=== PATIENT | female | born 1940 ===

== ENCOUNTER 2016-07-27 13:44 | Inpatient (IN) | payer MEDICARE, OTHER ==
[~2016-07-27] VITALS: Ht 162.6 cm; Wt 80.0 kg
[2016-07-27] VITALS (17 sets, daily range): BP systolic 107–164; BP diastolic 43–72; BMI 26.3
--- NOTE | ~2016-07-27 | HEMODYNAMI ---
PATIENT:JERSON DRAPER MEDICAL RECORD: [id number] : 42 LOCATION:[facility] ADMISSION DATE: 07/27/16 Generatedon:07/27/201616:13 Patient name: JERSON DRAPER Patient #: [id number] SSN: D OB: 1940 Date of study: 07/27/2016 Page: Of Hemodynamic Procedure Report Patient Data Patient Demographics Procedure consent was obtained First Name: JERSON Gender: Female Last Name: BARON : 1940 Middle Initial: L Age: 75 year(s) Patient #: [id number] Race: Unknown Additional ID: [id number] Contact details Address: [facility] [address] State: [place] City: [place] Zip code: [address] Admission Admission Data Admission Date: 07/27/2016 Admission Time: 13:44 Procedure Procedure Types Cath Procedure Diagnostic Procedure LHC LHC w/Coronaries Intra-Aortic Balloon Pump PCI Procedure AMI-BMS/XIMENA Initial Miscellaneous Procedures Moderate Sedation up to 45 minutes Procedure Description Procedure Date Procedure Date: 07/27/2016 Procedure Start Time: 14:40 Procedure Staff Name Function Isauro Steinberg MD Performing Physician Den Claudio RT Scrub Brian Mills RN Nurse Tootie Fry RT Monitor Procedure Data Cath Procedure Fluoroscopy Diagnostic fluoroscopy Total fluoroscopy Time: time: 10.5 min 10.5 min Diagnostic fluoroscopy Total fluoroscopy dose: dose: 1071 mGy 1071 mGy Contrast Material Contrast Material Type Amount (ml) Isovue 300 110 Entry Location Entry Primary Successful Side Size Upsize Upsize Entry Closure Succes sful Closure Location (Fr) 1 (Fr) 2 (Fr) Remarks Device Remarks Femoral Right 6 Fr Exoseal artery Short Femoral Left 7 Fr Sheath artery Short sutured in place Estimated blood loss: 10 ml Diagnostic catheters Device Type Used For End Catheter Placement Cordis 5Fr JL 4.0 Left Coronary Catheter (MP) Angiography Cordis 5Fr 3DRC Catheter Right Coronary (MP) Angiography Procedure Complications No complications Procedure Medications Medication Administration Route Dosage Oxygen NC 2 l/min Heparin Flush Bag added to field 2 bags (1000units/500ml NS) 0.9% NaCl I.V. 100 ml/hr Fentanyl I.V. 50 mcg Versed I.V. 1 mg Fentanyl I.V. 50 mcg Versed I.V. 1 mg Heparin Bolus I.V. 6500 units Integrilin (Bolus I.V. 6.2 ml 2mg/ml) Nitroglycerin IC/IA I.C. 100 mcg Cardene I.C. 300 mcg Dopamine I.V. drip 10 mcg/kg/min (400mg/250ml D5W) Integrilin Drip I.V. drip 10.4 ml/hr (75mg/100ml) Dopamine I.V. drip 10 mcg/kg/min (400mg/250ml D5W) 0.9% NaCl I.V. 999 ml/hr Brilinta P.O. 180 mg Hemodynamics Rest Heart Rate: 81 (bpm) Snapshots Pre Cath Intra NCS Post Cath Vital Signs Time Heart Resp SPO2 etCO2 OS5auug NIBP Rhythm Pain Sedation Rate (ipm) (%) (mmHg) (mmHg) (mmHg) Status Level (bpm) 14:34:41 93 20 91 0 0 101/65(77) NSR 0 (11) 10(A) , No pain 14:38:43 91 19 95 0 0 114/72(98) NSR 0 (11) 9(A) , No pain 14:42:49 93 17 91 0 0 110/72(86) NSR 0 (11) 9(A) , No pain 14:46:55 96 17 96 0 0 107/66(80) NSR 0 (11) 9(A) , No pain 14:51:01 98 16 96 0 0 94/61(67) NSR 0 (11) 9(A) , No pain 14:55:02 99 17 97 0 0 107/63(82) NSR 0 (11) 9(A) , No pain 14:59:08 100 17 97 0 0 115/58(87) NSR 0 (11) 9(A) , No pain 15:03:18 97 17 95 0 0 106/62(77) NSR 0 (11) 9(A) , No pain 15:08:33 74 18 96 0 0 56/32(45) NSR 0 (11) 9(A) , No pain 15:17:18 69 12 97 0 0 57/33(41) NSR 0 (11) 9(A) , No pain 15:21:11 91 17 96 0 0 66/35(46) NSR 0 (11) 9(A) , No pain 15:25:09 80 20 95 0 0 63/36(49) NSR 0 (11) 9(A) , No pain 15:30:06 72 17 94 0 0 54/34(46) NSR 0 (11) 9(A) , No pain 15:38:36 111 18 95 0 0 91/66(83) NSR 0 (11) 10(A) , No pain 15:42:42 96 17 95 0 0 98/42(65) NSR 0 (11) 10(A) , No pain 15:57:14 91 19 95 0 0 114/46(69) NSR 0 (11) 10(A) , No pain 16:01:20 90 28 94 0 0 119/67(81) NSR 0 (11) 10(A) , No pain 16:05:26 89 23 94 0 0 117/71(76) NSR 0 (11) 10(A) , No pain 16:10:25 88 20 95 0 0 Measuring NSR 0 (11) 10(A) , No pain 16:11:02 88 18 95 0 0 126/69(94) NSR 0 (11) 10(A) , No pain Medications Time Medication Route Dose Verified Delivered Reason N otes Effectiveness by by 14:37:17 Oxygen NC 2 l/min Brian Torres Per physician Gene Mills RN RN 14:37:26 Heparin Flush added 2 bags Brian Torres used for Bag to Gene Mills RN procedure (1000units/500ml field RN NS) 14:37:37 0.9% NaCl I.V. 100 ml/hr Brian Torres Per physician Gene Mills RN RN 14:37:47 Fentanyl I.V. 50 mcg Brian Torres for sedation Gene Mills RN RN 14:37:53 Versed I.V. 1 mg Brian Torres for sedation Gene Mills RN RN 14:41:58 Fentanyl I.V. 50 mcg Brian Brian for sedation Gene Mills RN RN 14:42:02 Versed I.V. 1 mg Brian Torres for sedation Gene Mills RN RN 14:47:28 Integrilin I.V. 6.2 ml Brian Torres for w asted 3.8mL (Bolus 2mg/ml) Gene Mills RN antiplatelet of RN therapy integrilin bolus 14:47:28 Heparin Bolus I.V. 6500 units Brian Torres for Gene Mills RN anticoagulation RN 14:59:15 Nitroglycerin I.C. 100 mcg Brian Isauro for IC/IA Gene Steinberg MD vasodilation RN 14:59:34 Cardene I.C. 300 mcg Brian Isauro for Gene Steinberg MD vasodilation RN 15:02:07 0.9% NaCl I.V. 999 ml/hr Brian Torres Per physician Gene Mills RN RN 15:03:20 Dopamine I.V. 10 Brian Torres For hypotension (400mg/250ml drip mcg/kg/min Gene Mills RN D5W) RN 15:10:30 Integrilin Drip I.V. 10.4 ml/hr Brian Torres for (75mg/100ml) drip Gene Mills RN antiplatelet RN therapy 15:35:23 Dopamine I.V. 10 Brian Torres For hypotension d iscontinued (400mg/250ml drip mcg/kg/min Gene Mills RN D5W) RN 15:54:54 Brilinta P.O. 180 mg Brian Torres for Gene Mills RN antiplatelet RN therapy Procedure Log Time Note 14:20:11 Brian Mills RN sent for patient. Start room use. 14:30:12 Time tracking: Call back 14:30:15 Plan of Care:Hemodynamics will remain stable., Cardiac rhythm will remain stable., Comfort level will be maintained., Respiratory function will remain adequate., Patient/ family verbilizes understanding of procedure., Procedure tolerated without complication., Recovers from procedure without complications.. 14:33:33 Patient received from ED to CCL 1 Alert and oriented. Tansferred to table in Supine position. 14:33:34 Warm blankets applied, and ty hugger turned on for patient comfort. 14:33:34 Correct patient and procedure confirmed by team. 14:33:35 Signed procedure consent form obtained from patient. 14:33:36 ECG and BP/O2 sat monitors applied to patient. 14:33:36 Vital chart was started 14:33:44 Rhythm: sinus rhythm , w/ ST elevation 14:33:46 Full Disclosure recording started 14:33:50 H&P Date Dictated: 07/27/2016 Emergent; H&P N/A. 14:33:52 Pre-procedure instructions explained to patient. 14:33:52 Pre-op teaching completed and patient verbalized understanding. 14:33:54 Family in waiting room. 14:33:56 Patient NPO since Midnight. 14:34:08 Is the patient allergic to Iodine/contrast media? No. 14:34:10 Is patient on blood thinner?No 14:34:22 IV Extension Set opened to sterile field. 14:34:31 Patient diabetic? No. 14:34:34 Previous problem with sedation/anesthesia? No ? 14:34:36 Snore? Yes 14:34:37 Sleep apnea? No 14:34:38 Deviated septum? No 14:34:39 Opens mouth fully? Yes 14:34:40 Sticks out tongue? Yes 14:34:41 Airway obstruction? No ? 14:34:44 Dentures? No ? 14:34:47 Pre procedure: right dorsailis pedis pulse 2+ Normal; easily identifiable; not easily obliterated 14:34:49 Patient pain scale 0/10 ?. 14:34:58 IV patent on arrival in left forearm with 0.9% NaCl at KVO. 14:35:02 Lab results completed and on chart. 14:35:04 Right groin area was prepped with chlora-prep and draped in sterile fashion 14:35:05 Alarms reviewed by R. N. 14:35:06 Sharps counted by scrub and verified by R.N. 14:35:07 Final Timeout: patient, procedure, and site verified with staff and physician. All members of the team are in agreement. 14:35:08 Right groin site verified by team. 14:35:12 Physical assessment completed. ASA score P 3 - A patient with severe systemic disease as per Isauro Steinberg MD. 14:35:15 Sedation plan: IV Moderate Sedation Versed, Fentanyl 14:35:22 Use device set Femoral Dx 14:35:23 Acist Syringe opened to sterile field. 14:35:23 Bag Decanter opened to sterile field. 14:35:24 Medline Cath Pack opened to sterile field. 14:35:25 St Michael 260cm J .035 wire opened to sterile field. 14:35:26 Acist Hand Control opened to sterile field. 14:35:26 Acist Manifold opened to sterile field. 14:35:27 Diagnostic Infinity 5Fr Multipack catheter opened to sterile field. 14:35:27 Tegaderm 4 x 4 opened to sterile field. 14:35:43 Terumo 6Fr Arnegard Sheath opened to sterile field. 14:37:17 Oxygen 2 l/min NC was administered by Brian Mills RN; Per physician; 14:37:26 Heparin Flush Bag (1000units/500ml NS) 2 bags added to field was administered by Brian Mills RN; used for procedure; 14:37:37 0.9% NaCl 100 ml/hr I.V. was administered by Brian Mills RN; Per physician; 14:37:47 Fentanyl 50 mcg I.V. was administered by Brian Mills RN; for sedation; 14:37:53 Versed 1 mg I.V. was administered by Brian Mills RN; for sedation; 14:39:36 Zero performed for pressure channel P1 14:40:55 Local anesthetic to right femoral artery with Lidocaine 2% by Isauro Steinberg MD.INITIAL ACCESS ONLY 14:41:18 Zero performed for pressure channel P1 14:41:58 Fentanyl 50 mcg I.V. was administered by Brian Mills RN; for sedation; 14:42:02 Versed 1 mg I.V. was administered by Brian Mills RN; for sedation; 14:42:18 A 6 Fr Short sheath was inserted into the Right Femoral artery 14:42:54 Baseline sample Acquired. 14:43:04 A Cordis 5Fr JL 4.0 Catheter (MP) was advanced over the wire and used for Left Coronary Angiography. 14:43:43 Cordis 6FR XBLAD 3.5 guide catheter opened to sterile field. 14:43:49 Catheter removed. 14:44:16 A Cordis 5Fr 3DRC Catheter (MP) was advanced over the wire and used for Right Coronary Angiography. 14:45:14 Catheter removed. 14:46:56 6 Fr XBLAD 3.5 guide catheter was inserted over the wire 14:47:28 Integrilin (Bolus 2mg/ml) 6.2 ml I.V. was administered by Brian Mills RN; for antiplatelet therapy; wasted 3.8mL of integrilin bolus 14:47:28 Heparin Bolus 6500 units I.V. was administered by Brian Mills RN; for anticoagulation; 14:49:20 BMW wire advanced. 14:49:27 Wire removed. unable to cross lesion. 14:50:04 Whisper wire advanced. 14:52:56 Inflation number: 1 A Blandford Sci Pickaway 2.5 X 20 balloon was prepped and advanced across the Prox CX, then inflated to 10 MIMI for 0:23 (min:sec). 14:53:59 Inflation number: 2 The Blandford Sci Pickaway 2.5 X 20 balloon was reinflated across the Prox CX, to 10 MIMI for 0:17 (min:sec). 14:54:22 Inflation number: 3 The Blandford Sci Pickaway 2.5 X 20 balloon was reinflated across the Prox CX, to 10 MIMI for 0:14 (min:sec). 14:55:40 Balloon removed over the wire. 14:58:27 Inflation Number: 4 A CourseAdvisortronic Integrity 2.75 X 26 stent was prepped and advanced across the Prox CX. The stent was deployed at 10 MIMI for 0:14 (min:sec). 14:59:15 Nitroglycerin IC/IA 100 mcg I.C. was administered by Isauro Steinberg MD; for vasodilation; 14:59:34 Cardene 300 mcg I.C. was administered by Isauro Steinberg MD; for vasodilation; 15:02:07 0.9% NaCl 999 ml/hr I.V. was administered by Brian Mills RN; Per physician; 15:03:20 Dopamine (400mg/250ml D5W) 10 mcg/kg/min I.V. drip was administered by Brian Mills RN; For hypotension; 15:10:30 Integrilin Drip (75mg/100ml) 10.4 ml/hr I.V. drip was administered by Brian Mills RN; for antiplatelet therapy; 15:20:49 Stent catheter was removed intact over wire. 15:20:50 Wire removed. 15:21:09 Left groin area was prepped with chlora-prep and draped in sterile fashion 15:22:51 A 7 Fr Short sheath was inserted into the Left Femoral artery 15::39 Local anesthetic to left femerol artery with Lidocaine 2% by Isauro Steinberg MD.ADDITIONAL ACCESS 15:27:11 34cc IABP inserted into the LFA . 15:27:13 Augmentation: 1:1 per physician. 15:: Trigger: Pressure 15:: Augmenter BP: 60 15:35:23 Dopamine (400mg/250ml D5W) 10 mcg/kg/min I.V. drip was administered by Brian Mills RN; For hypotension; discontinued 15:36:23 Vital chart was stopped 15:36:24 Vital chart was started 15:43:23 Cordis 6Fr Exoseal opened to sterile field. 15:43:56 Sheath removed intact; hemostasis achieved with Exoseal to the Right Femoral artery. 15:44:22 TUBING, CONTRAST INJCTN HI PRES opened to sterile field. 15:44:22 Datascope IABP 34cm balloon catheter opened to sterile field. 15:44:37 2.0 Silk 685H opened to sterile field. 15:44:38 2.0 Silk 685H opened to sterile field. 15:44:44 Procedure ended.(Physican Out) 15:45:09 Arterial Line opened to sterile field. 15:45:31 Terumo 7Fr Arnegard Sheath opened to sterile field. 15:54:54 Brilinta 180 mg P.O. was administered by Brian Mills RN; for antiplatelet therapy; 15:56:08 Vital chart was stopped 15:56:09 Vital chart was started 16:07:10 Fluoroscopy time 10.50 minutes. 16:07:14 Fluoroscopy dose: 1071 mGy 16:07:14 Flurop Dose total: 1071 16:07:19 Contrast amount:Isovue 300 110ml. 16:07:20 Sharps counted by scrub and verified by R.N. 16:07:22 Insertion/operative site no bleeding no hematoma. 16:07:27 Post-op/insertion site Right Femoral artery dressed using a 4 x 4 and Tegaderm. 16:07:31 Post right femoral artery:stable, clean and dry 16:07:49 Sheath removed intact; hemostasis achieved with Sheath sutured in place to the Left Femoral artery. 16:07:57 Post-op/insertion site Left Femoral artery dressed using a 4 x 4 and Tegaderm. 16:07:59 Post Procedure Pulses reassessed and unchanged 16:08:04 Post-procedure physical assessment completed. ASA score P 3 - A patient with severe systemic disease as per Isauro Steinberg MD. 16:08:51 Post procedure rhythm: sinus rhythm 16:08:53 Estimated blood loss: 10 ml 16:08:55 Post procedure instruction explained to patient.Patient verbalizes understanding. 16:08:55 Patient needs reinforcement of post procedure teaching. 16:09:32 Procedure type changed to Cath procedure, Diagnostic procedure, LHC, LHC w/Coronaries, Intra-Aortic Balloon Pump, PCI procedure, AMI-BMS/XIMENA Initial, Miscellaneous Procedures, Moderate Sedation up to 45 minutes 16:09:43 Procedure Complication : No complications 16:09:45 See physician's report for complete and final results. 16:10:15 Tegaderm 4 x 4 opened to sterile field. 16:10:15 Tegaderm 4 x 4 opened to sterile field. 16:10:16 IV Extension Set opened to sterile field. 16:11:11 Merit BasixCompak Inflation Kit opened to sterile field. 16:11:12 Aguilar BMW Chana 2 J-tip 300cm 0.014 guide wir opened to sterile field. 16:11:17 High Pressure Extension Tubing (Steinberg) opened to sterile field. 16:13:23 Report given to CVICU. 16:13:26 Patient transfered to CVICU with Bed. 16:13:28 Procedure and supply charges have been captured, reviewed, submitted and are correct. 16:13:31 End room use (Document Last) 16:13:53 Vital chart was stopped Intervention Summary Intervention Notes Time ActionType Lesion and Equipment Action# Pressure Duration Attributes Used 14:52:56 Inflate Prox CX Blandford 1 10 00:23 balloon Sci Pickaway 2.5 X 20 balloon 14:53:59 Reinflate Prox CX Blandford 2 10 00:17 balloon Sci Pickaway 2.5 X 20 balloon 14:54:22 Reinflate Prox CX Blandford 3 10 00:14 balloon Sci Pickaway 2.5 X 20 balloon 14:58:27 [address] stent Prox CX Medtronic 4 10 00:14 Integrity 2.75 X 26 stent Device Usage Item Name Manufacture Quantity Catalog Number Hospital Part Current Min imal Lot# / Charge Number Stock Stock Serial# Code IV Hospfort myers 2 39460-17 425617 77531 327700 5 Extension Set Acist Acist 1 51392 850203 917456 151002 20 Syringe Medical Systems Inc Bag Microtek 1 2002S 763555 75464 617210 5 Decanter Medical Inc. Medline Cardinal 1 [id number] 323046 85231 032311 [address] [facility] 1 293849 858980 855734 262509 30 260cm J .035 wire Acist Hand Acist 1 42992 258848 293933 232078 5 Control Medical Systems Inc Acist Acist 1 09283 630954 566582 548742 5 Manifold Medical Systems Inc Diagnostic Cardinal 1 [id number] 006461 46503 537420 30 BitGymity Health 5Fr Multipack catheter Tegaderm 4 3M 3 1626W 028475 388673 412348 5 x 4 Terumo 6Fr Terumo 1 [id number] 377781 852739 596440 40 Arnegard Sheath Cordis 5Fr Cardinal 1 532193 5 JL 4.0 Health Catheter (MP) Cordis 6FR Cardinal 1 [id number] 398522 833315 538244 10 XBLAD 3.5 Health guide catheter Cordis 5Fr Cardinal 1 439588 5 3DRC Health Catheter (MP) Blandford Sci Blandford 1 [id number] 194569 811266 576416 1 [id number] Field Agent Scientific 2.5 X 20 balloon Medtronic Medtronic 1 [id number] 678396 628409 591410 4 [id number] Integrity 2.75 X 26 stent Cordis 6Fr Cardinal 1 EX600 006073 592732 503972 10 HabitRPG TUBING, Merit 1 [id number] 165002 026368 804021 5 CONTRAST Medical INJCTN HI PRES Datascope Datascope 1 8056-67-3030-01 983051 022737 027962 1 IABP 34cm balloon catheter 2.0 Silk Ethicon 2 685H 179784 60034 072754 5 685H Arterial Smith 1 PX260 442880 83218 642350 5 Line Lifesciences Terumo 7Fr Terumo 1 YSE891 415588 425623 806939 5 Arnegard Sheath Merit Merit 1 FJ3457 619986 756074 063331 15 BasixCompak Medical Inflation Kit Aguilar BMW Aguilar 1 [id number] 265659 062120 104727 5 Chana 2 Vascular J-tip 300cm 0.014 guide wir High Merit 1 [id number] 614948 45027 663727 10 Pressure Medical Extension Tubing (Steinberg) Signature Audit [place] Stage Time Signature Unsigned Intra-Procedure 07/27/2016 T[place]ie 4:13:51 PM Counts RT(R) Signatures Monitor : Tootie Signature : Counts RT Date : Time : [address] [place] [address]
[2016-07-27 14:20] LABS: BASOPHILS 0.2 % (0-2); EOSINOPHILS 0.1 % (0-7); HEMATOCRIT 37.7 % (36.0-48.0); HEMOGLOBIN 11.7 g/dL (12-16); IMMATURE GRANULOCYTES 0.6 % (0-5); LYMPHOCYTES 9.7 % (15-50); MCV 86.9 fL (80.0-100.0); MEAN PLATELET VOLUME 9.8 fL (7.4-10.4); MONOCYTES 5.1 % (2-11); NEUTROPHILS 84.3 % (40-80); PLATELET COUNT 209 10x3/uL (130-400); RBC 4.34 10x6/uL (4.00-5.40); RDW 14.3 % (11.5-14.5); WBC 19.7 10x3/uL (4.8-10.8)
[2016-07-27 14:34] LABS: ALKALINE PHOSPHATASE 89 U/L (46-116); ALT (SGPT) 71 U/L (10-68); BILIRUBIN - TOTAL 0.93 mg/dL (0.2-1.3); CALC OSMOLALITY 285 mosm/kg (275-300); CALCIUM 8.5 mg/dL (8.5-10.1); CARBON DIOXIDE 25.8 mmol/L (21.0-32.0); CHLORIDE - SERUM 101 mmol/L (98-107); CREATININE - SERUM 1.6 mg/dL (0.6-1.3); POTASSIUM - SERUM 5.1 mmol/L (3.5-5.1); SODIUM 135 mmol/L (136-145); UREA NITROGEN 17 mg/dL (7-18); eGFR NON AFRICAN AMERICAN 33 mL/min (90-120)
[2016-07-27 14:35] LABS: GLUCOSE 352 mg/dL (74-106)
[2016-07-27 15:04] LABS: CHOLESTEROL, TOTAL 158 mg/dL (0-200); HDL CHOLESTEROL 40 mg/dL (32-96); LDL CHOLESTEROL 92 mg/dL (0-100); LDL-HDL RATIO 2.3 ratio (1.5-3.5); TRIGLYCERIDE 133 mg/dL (30-200)
[2016-07-27 15:05] LABS: CKMB 593.4 U/L (0.0-3.6); CREATINE KINASE 3923 UL (21-215)
[2016-07-27 15:13] LABS: TROPONIN-I 53.054 ng/mL (0.000-0.060)
--- NOTE | 2016-07-27 16:22 | NUR ---
RECIEVED PT FROM DRY CHAIN OPERATOR. ATTACHED TO ICU MONITORS. VSS AT THIS TIME. BALLOON PUMP TO LEFT GROIN. AT 1:1 FREQUENCY. REFER TO IABP FLOWSHEET FOR DOCUMENTATION. CATH SITE TO RIGHT GROIN WITH OPSITE DRESSING THAT'S C/D/I. DOPPLERABLE PEDAL PULSES. RADIAL PULSES PALPABLE BILATERALLY AND EQUAL. RECIEVING 3L VIA NC. IV TO LEFT HAND INFUSING INTEGRALIN AT 2MCG/MIN. IV TO LEFT FA INFUSING NS AT 100CC/HR. PT RESTLESS, INSTRUCTED ON THE IMPORTANCE OF KEEPING LEGS STRAIGHT. VERBALIZED UNDERSTANDING. REPORTS PAIN TO LEFT GROIN. WILL CALL DR. MICHAELS FOR PAIN MEDICATION ORDER. 1:1 CARE PROVIDED.
--- NOTE | 2016-07-27 17:00 | NUR ---
FAMILY AT BEDSIDE. UPDATE PROVIDED.
--- NOTE | 2016-07-27 17:00 | NUR ---
16F HARMON PLACED WITH 200CC CLEAR, YELLOW URINE NOTED TO COLLECTION BAG. DATED AND TIMED.
[2016-07-27] MEDS ORDERED: TRAZODONE HCL50 MG PO (17:15)
[2016-07-27] MEDS ORDERED: BENAZEPRIL HCL10 MG PO (17:20)
[2016-07-27] MEDS ORDERED: ULTRAM50 MG (17:21)
[2016-07-27] MEDS ORDERED: NEURONTIN 300300 MG PO (17:24)
[2016-07-27] MEDS ORDERED: OMEPRAZOLE20 M1 PO (17:24)
[2016-07-27] MEDS ORDERED: CYMBALTA20 MG PO (17:25)
[2016-07-27] MEDS ORDERED: SYNTHROID50 MCG PO (17:26)
--- NOTE | 2016-07-27 18:10 | NUR ---
DR. MICHAELS PAGED IN REGARDS TO PT'S BP AND AUGMENTED PRESSURE INCREASING. AWAITING CALL BACK.
--- NOTE | 2016-07-27 18:30 | NUR ---
DR. MICHAELS RETURNED PAGE. UPDATED ON PT'S CURRENT STATUS. ORDERS RECIEVED.
--- NOTE | 2016-07-27 18:35 | NUR ---
SPOKE WITH [facility]. HEARING AID NOT FOUND AT THEIR FACILITY. SPOKE WITH MIRTA AT [facility]. STATES HEARING AID NOT FOUND IN AMBULANCE.
[2016-07-27] MEDS ORDERED: GLUCOPHAGE500 MG (19:17)
--- NOTE | 2016-07-27 19:20 | NUR ---
REPORT RECVD. CARE ASSUMED. INITIAL ASSMNT COMPLETED. SEE FLOWSHEET FOR ALL FINDINGS. PT AOX4. MILD CONFUSION AND FORGETFULNESS NOTED. PERRLA. MAEW. FOLLOWS COMMANDS. RESTLESS. REPORTS DISCOMFORT. PRN MORPHINE IN USE. PT IS SUPINE, FLAT WITH INSTRUCTIONS TO KEEP LEFT LEG STRAIGHT DUE TO IABP CATH TO LEFT GROIN. IABP INTACT AT 1:1 ASSIST. ALL PRESSURES WITHIN PARAMETERS. SR ON THE MONITOR. PULSES WEAK, PALP X4. RESP UNLABORED. EXP WHEEZES TO UPPER LUNG DONIS. OCC CAPTAIN FISHING VESSEL COUGH NOTED. SPO2 95% ON O2 AT 3 LPM NC. RIGHT AND LEFT GROIN SITES SOFT. NO HEMATOMA SEEN. ABD SOFT, BSA X4. F/C PATENT WITH TAMIKO CONCENTRATED UOP. 1:[address] CONT CURRENT POC.
--- NOTE | 2016-07-27 20:02 | NUR ---
SPOKE WITH DR MICHAELS. REPORTED INCREASED TROPONIN. DISCUSSED DM AND INCREASED GLUCOSE. ORDERS RECVD.
--- NOTE | 2016-07-27 21:15 | NUR ---
FAMILY AT BEDSIDE. UPDATE GIVEN. TEACHING DONE. VSS. SR ON THE MONITOR. IABP INTACT AT 1:1. AUG PRESSURE WITHIN PARAMETERS. PRN MORPHINE IVP PROVIDING COMFORT. REMAINS IN 1:1 NURSE MONITORING. CONT CURRENT POC.
--- NOTE | 2016-07-27 23:30 | NUR ---
REASSESSMENT COMPLETED. SEE FLOWSHEET FOR ALL FINDINGS. RESTLESS AT TIMES. AROUSES WITH DISORIENTATION. EASILY REORIENTED. MILD CONFUSION AND FORGETFULNESS NOTED. PERRLA. MAEW. FOLLOWS COMMANDS. REPORTS PAIN AT TIMES. PRN MORPHINE IN USE. PT IS SUPINE, FLAT WITH INSTRUCTIONS TO KEEP LEFT LEG STRAIGHT DUE TO IABP CATH TO LEFT GROIN. IABP INTACT AT 1:1 ASSIST. ALL PRESSURES WITHIN PARAMETERS. SR ON THE MONITOR. PULSES WEAK, PALP X4. RESP UNLABORED. EXP WHEEZES TO UPPER LUNG DONIS. OCC MECHANICAL ESTIMATOR COUGH NOTED. SPO2 95% ON O2 AT 3 LPM NC. RIGHT AND LEFT GROIN SITES SOFT. NO HEMATOMA SEEN. ABD SOFT, BSA X4. F/C PATENT WITH TAMIKO CONCENTRATED UOP. 1:[address] CONT CURRENT POC.
[2016-07-28] VITALS (78 sets, daily range): BP systolic 70–137; BP diastolic 32–62; Ht 162.6 cm; Wt 80.0 kg
--- NOTE | 2016-07-28 01:22 | NUR ---
PT RESTING WITH NO DISTRESS. VSS./ SR ON THE MONITOR. IABP INTACT. PRESSURES WITHIN PARAMETERS. SPO2 96%. 1:[address] CONT CURRENT POC.
[2016-07-28 02:47] LABS: HEMATOCRIT 35.8 % (36.0-48.0); MCH 27.1 pg (26.0-34.0); MCHC 30.7 g/dL (31.0-37.0); MCV 88.2 fL (80.0-100.0); MEAN PLATELET VOLUME 9.7 fL (7.4-10.4); PLATELET COUNT 203 10x3/uL (130-400); RBC 4.06 10x6/uL (4.00-5.40); RDW 14.9 % (11.5-14.5)
[2016-07-28 02:54] LABS: APTT 36.5 SECONDS (22.8-39.4); INR 1.31 (0.85-1.17); PROTIME 16.1 SECONDS (11.6-15.0)
[2016-07-28 02:57] LABS: ALBUMIN 2.5 g/dL (3.4-5.0); BILIRUBIN - TOTAL 1.01 mg/dL (0.2-1.3); CALCIUM 7.6 mg/dL (8.5-10.1); CARBON DIOXIDE 21.3 mmol/L (21.0-32.0); PROTEIN - SERUM 6.4 g/dL (6.4-8.2)
[2016-07-28 02:58] LABS: CREATININE - SERUM 2.3 mg/dL (0.6-1.3)
[2016-07-28 02:59] LABS: ANION GAP 16.9 mmol/L (8-16); POTASSIUM - SERUM 6.2 mmol/L (3.5-5.1)
[2016-07-28 03:01] LABS: BASOPHILS 1 % (0-2); EOSINOPHILS 2 % (0-7); LYMPHOCYTES 14 % (15-50); MONOCYTES 4 % (2-11); NEUTROPHILS 79 % (40-80)
[2016-07-28 03:02] LABS: PLATELET ESTIMATE NORMAL
--- NOTE | 2016-07-28 04:30 | NUR ---
0215- RESP SHALLOW. LUNG SOUNDS WITH INCREASED WHEEZES RT AT BEDSIDE. TITRATING O2 FOR CONTINUED SPO2 DESATURATION. SPO2 INCREASED WITH OXYMIZER AT 15LPM 0230- ABGS DRAWN AND RESULTED. CALLED TO DR MICHAELS. ORDERS RECVD. 0340- CONT TO DECLINE. AFIB ON THE MONITOR. DR MICHAELS NOTIFIED. ORDERS RECVD FOR AMIODARONE. 0350- ABGS DRAWN AND RESULTED. SPOE WITH DR BREWER. ORDERS TO INTUBATE AND ORDERS RECVD FOR SEPSIS PROTOCOL TO INCLUDE FLUID BOLUS AND ABTS. FAMILY BROUGHT TO BEDSIDE. UPDATE GIVEN. CONSENT FOR ALL PROCEDURES. VERIFIED PT IS FULL CODE. 0415-DR GENAO AT BEDSIDE. SUCCESSFUL INTUBATION. STAT CXRAY DONE. PT PLACED ON VENT. SPO2 100% ON THE MONITOR. 0430- HYPOTENSIVE. SPOKE WITH DR MICHAELS TO INFORM OF PT STATUS AND LOW B/P ORDERS FOR LEVOPHED GTT TITRATION.
--- NOTE | 2016-07-28 05:30 | NUR ---
REMAINS IN UCAFIB. CORDARONE GTT AT 1MG/MIN LEVOPHED GTT TITRATION IN PROGRESS FOR HYPOTENSION. FLUID BOLUS COMPLETED PER PROTOCOL. VENT AT AC RATE, FIO2 AT 70%. SPO2 97%
--- NOTE | 2016-07-28 06:08 | NUR ---
FAMILY AT BEDSIDE. UPDATE GIVEN.
--- NOTE | 2016-07-28 06:20 | NUR ---
DR MICHAELS AT BEDSIDE. ORDERS RECVD FOR LOPRESSOR IVP.
--- NOTE | 2016-07-28 06:35 | NUR ---
CONVERTED TO NSR AT RATE OF 66 CORDARONE TO 0.5 MG/MIN LEVOPHED TITRATION REMAINS. AUG PRESSURE 94
--- NOTE | 2016-07-28 07:00 | NUR ---
Report received. Pt on Vent at 70%, 20, 600, peep 5. Pt has balloon pump to left groin. Dressing intact, previous bleeding on dressing marked. No evidence of fresh bleeding. Lines are intact. Pt settings 1:1, orders to keep augmented pressure at 90 or above.
--- NOTE | 2016-07-28 09:44 | NUR ---
Family at bedside. Dr Lund in to see patient. Spoke with family regarding patient condition.
--- NOTE | 2016-07-28 10:32 | NUR ---
Nursing message for HOB >30 received. Pt is on balloon pump and policy dictates HOB should be <30
--- NOTE | 2016-07-28 10:50 | NUR ---
Dr Xavier at bedside to place central line. Consent obtained from daughter, Yani.
--- NOTE | 2016-07-28 12:05 | NUR ---
Family at bedside for noon visit. Update provided.
--- NOTE | 2016-07-28 13:19 | NUR ---
Dr. Steinberg paged, pt augmented pressures dropping into upper 70's. Levophed at 30 mcg/min. Bolus of 250 ml of NS given. Dr. Steinberg ordered Deejay to be given. Deejay was started at 1310. Dr. Steinberg by to see patient. Wants weaned off Levophed since maxed at 30 mcg/min.
--- NOTE | 2016-07-28 13:42 | NUR ---
CVP monitoring started. Had to wait on supplies. Initial CVP reading is 10.
--- NOTE | 2016-07-28 13:56 | NUR ---
Levophed turned off. Deejay at 2mcg/kg/min. Augmented pressure 92.
--- NOTE | 2016-07-28 15:40 | NUR ---
Gold band removed from left middle finger. Pt had swelling a nuckle that prohibited being able to remove without wrapping finger with string to get ring off. Ice being applied to help with swelling
--- NOTE | 2016-07-28 15:52 | NUR ---
Dr Steinberg in room. Updating family.
--- NOTE | 2016-07-28 16:35 | NUR ---
Sister from intermediate here to visit.
--- NOTE | 2016-07-28 18:02 | NUR ---
PT PRESSURES REQUIRING INCREASE ON OLINDA. NOW AT 3.25 MCG/KG/MIN. MAX IS 180 ML/HR. RUNNING AT THAT RATE NOW. DR MICHAELS CALLED, ASKED FOR LEVOPHED TO BE TURNED BACK ON AND PHARMACY CALLED TO SEE IF WE CAN DOUBLE CONCENTRATE OLINDA IN THE SAME FLUID AMOUNT SO NOT TO OVERLOAD PT WITH FLUIDS. ALSO ASKED FOR 80MG DOSE OF LASIX TO BE GIVEN. PHARMACY CALLED AND ASKED ABOUT CONCENTRATION OF OLINDA. [facility] IS LOOKING INTO IT.
--- NOTE | 2016-07-28 18:12 | NUR ---
FAMILY IN FOR VISITATION AT THIS TIME. UPDATE PROVIDED
--- NOTE | 2016-07-28 19:01 | NUR ---
PT CLEANED UP BOWEL MOVEMENT. FULL LINEN CHANGE PROVIDED. PT TOLERATED WELL.
--- NOTE | 2016-07-28 19:30 | NUR ---
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 PT ON MECH VENT VIA OETT - SEE FLOWSHEET. IVFS INFUSING TO L TLSC, DSG INTACT WITH OLD BLOODY DRAINAGE UNDER TEGADERM - SEE FLOWSHEET. PIV X 3, PATENT, NO REDNESS OR SWELLING AT SITE. IV GTTS PER FLOWSHEET, WILL TITIRATE PER MD ORDERS. CM - SR WITH PACS, IABP IN PLACE TO L GROIN - 1:1, DSG C/D/I. HARMON CATH PATENT WITH SCANT TAMIKO URINE NOTED. EXTR COOL TO TOUCH, PEDAL PULSES DOPPLERABLE. WILL CONT 1:1 NURSING CARE. ALARMS ON.
--- NOTE | 2016-07-28 20:37 | NUR ---
DR. LONGO PAGED AND NOTIFIED OF NO URINE OUTPUT LAST 2 HOURS SINCE LASIX. NO NEW ORDERS.
--- NOTE | 2016-07-28 20:40 | NUR ---
LARGE FOUL SMELLING BM. COMPLETE BATH AND LINEN CHANGE DONE.
--- NOTE | 2016-07-28 21:15 | NUR ---
KAROLINE BARRAGAN HERE, SUPPLIED MORE CHAIRS FOR WAITING ROOM.
--- NOTE | 2016-07-28 21:16 | NUR ---
LARGE AMOUNT OF FAMILY AT BS 4 AT AT TIME, UPDATE GIVEN. AT THIS TIME VSS WITH GTTS PER FLOWSHEET, NO SIGN OF DISTRESS
--- NOTE | 2016-07-28 22:42 | NUR ---
REASSESSMENT PER FLOWSHEET, NO ACUTE CHANGES. TITRATING LEVOPHED GTT PER MD ORDERS. NO SIGN OF DISTRESS. ELEVATED TEMP, EXTRA BLANKETS OFF. WILL CONT 1:1 NURSING CARE.
[2016-07-29] VITALS (38 sets, daily range): BP systolic 61–112; BP diastolic 23–57
--- NOTE | 2016-07-29 | NUR ---
TITRATING LEVOPHED PER MD ORDERS. DIPRIVAN OFF AT THIS TIME.. RR 15, PT NOT OPENING EYES. WILL CONT CLOSE MONITORING.
--- NOTE | 2016-07-29 02:24 | NUR ---
DR. LONGO PAGED AND NOTIFIED OF CRITICAL ABG RESULTS. NEW ORDERS REC'D.
--- NOTE | 2016-07-29 02:45 | NUR ---
REASSESSMENT PER FLOWSHEET, CM - SR WITH FREQ PVC. NO OTHER ACUTE CHANGES. CALCIUM CHLORIDE RIDER AND BICARB GIVEN PER MD ORDER.
--- NOTE | 2016-07-29 03:20 | NUR ---
CM - [facility]. B/P DOWN. TITRATING LEVOPHED.
--- NOTE | 2016-07-29 03:53 | NUR ---
DR. DONTA OLIVEIRA AND NOTIFIED OF [facility]CA[facility] - LEVO AND OLINDA GTTS AT MAX RECOMMENDED DOSAGES. Oct 76. FAMILY AT BS.. NEW ORDER REC'D.
--- NOTE | 2016-07-29 04:03 | NUR ---
DIG 0.5MG IV GIVEN OVER 2 MIN.. HR NOW 90S. FAMILY AT BS. AUG PRESSURE 80.
--- NOTE | 2016-07-29 04:14 | NUR ---
FAMILY REMAINS AT BS.. QUESTIONS ANSWERED. HR 80S, AUG PRESSURE 84.
--- NOTE | 2016-07-29 05:00 | NUR ---
AM LAB DRAWN.
[2016-07-29 05:30] LABS: BASOPHILS 0.9 % (0-2); EOSINOPHILS 0.6 % (0-7); HEMATOCRIT 29.6 % (36.0-48.0); IMMATURE GRANULOCYTES 2.4 % (0-5); LYMPHOCYTES 28.5 % (15-50); MCH 26.5 pg (26.0-34.0); MCHC 29.1 g/dL (31.0-37.0); MEAN PLATELET VOLUME 10.2 fL (7.4-10.4); MONOCYTES 3.8 % (2-11); NEUTROPHILS 63.8 % (40-80); RDW 15.7 % (11.5-14.5)
[2016-07-29 05:35] LABS: HEMOGLOBIN 8.6 g/dL (12-16); MCV 91.4 fL (80.0-100.0); PLATELET COUNT 139 10x3/uL (130-400); RBC 3.24 10x6/uL (4.00-5.40); WBC 10.8 10x3/uL (4.8-10.8)
--- NOTE | 2016-07-29 06:00 | NUR ---
FAMILY AT BS, UPDATE GIVEN. LAB PENDING.
[2016-07-29 06:14] LABS: BILIRUBIN - DIRECT 0.62 mg/dL (0.00-0.30); BILIRUBIN - TOTAL 1.17 mg/dL (0.2-1.3); CARBON DIOXIDE 16.8 mmol/L (21.0-32.0); MAGNESIUM - SERUM 1.3 mg/dL (1.8-2.4)
[2016-07-29 06:17] LABS: ALBUMIN 1.4 g/dL (3.4-5.0); ANION GAP 27.1 mmol/L (8-16); CREATININE - SERUM 3.8 mg/dL (0.6-1.3); POTASSIUM - SERUM 4.9 mmol/L (3.5-5.1); PROTEIN - SERUM 4.1 g/dL (6.4-8.2)
--- NOTE | 2016-07-29 07:00 | NUR ---
DR. MICHAELS HERE, NEW ORDERS REC'D. CORDARONE GTT TO 1MG/MIN.
--- NOTE | 2016-07-29 07:00 | NUR ---
PT REPORT REC'D, PT CARE ASSUMED, PT SEDATED, ON VENT. CONTROLLED A-FIB, LEFT GROIN IABP INCISION, DRESSING CDI. LEFT SUBCLAVIAN CVL WITH FLUIDS INFUSING, SEE FLOW SHEET. LEFT WRIST PIV WITH FLUIDS INFUSING. HARMON CATHETER FREE OF KINKS TO GRAVITY. RIGHT GROIN DRESSING CDI. BILAT PEDAL PULSES AUSCULTATED WITH DOPPLER. SHIFT ASSESSMENT COMPLETED, SEE FLOW SHEET. ROOM FREE OF CLUTTER, CALL LIGHT IN REACH, WILL CONTINUE TO MONITOR PT.
--- NOTE | 2016-07-29 08:02 | OP ---
PATIENT NAME: JERSON DRAPER MEDICAL RECORD: [id number] :42 LOCATION:[facility].CV01 ADMISSION DATE:07/27/16 SURGEON: FARZANEH TIMMONS MD DATE OF OPERATION: 07/28/2016 SURGEON: Farzaneh Timmons MD. PREOPERATIVE DIAGNOSES: Acute myocardial infarction, acute renal failure, acute heart failure, cardiogenic shock, atrial fibrillation and lack of intravenous access. POSTOPERATIVE DIAGNOSES: Acute myocardial infarction, acute renal failure, acute heart failure, cardiogenic shock, atrial fibrillation and lack of intravenous access. PROCEDURE: Emergent placement of left subclavian triple lumen central venous catheter. ANESTHESIA: Local. COMPLICATIONS: None. SPECIMENS: None. ESTIMATED BLOOD LOSS: 10 cc. Case was clean. OPERATIVE COURSE: After consent was obtained, the patient was placed in the supine position on her ICU bed. A timeout was taken to confirm the correct patient and procedure. The left chest and neck were prepped and draped in the typical sterile fashion. Local anesthetic was administered. The left subclavian vein was cannulated in the first pass. A guidewire was placed. The needle was removed. Skin incision was made with an 11-blade scalpel. The dilator was then passed over the wire in the standard Seldinger fashion. The catheter was then passed over the wire in the standard Seldinger fashion. The wire was removed. A Biopatch was placed. The catheter was secured to the skin with 2-0 silk suture and a sterile Tegaderm dressing. All 3 ports were aspirated and flushed. At the end of the case, all needle and instrument counts were correct. No complications occurred. Immediate postoperative chest x-ray was performed to confirm placement of the line. TRANSINT:[id number] Voice Confirmation ID: [id number] DOCUMENT ID: [id number] FARZANEH TIMMONS MD at 0802 CC: [id number] DICTATION DATE: 07/28/16 1131 ASSISTED LIVING EXECUTIVE DIRECTOR: 07/28/16 1332 ADM IN [facility] [address] [id number]
--- NOTE | 2016-07-29 08:26 | NUR ---
CONTACTED DR. ROLDAN PER CONSULT, "WILL BE UP THERE IN A LITTLE BIT."
--- NOTE | 2016-07-29 09:02 | NUR ---
ECHO AT THE BEDSIDE
--- NOTE | 2016-07-29 09:18 | NUR ---
PT A-SYSTOLE, CODE BLUE CALLED AND INITIATED
--- NOTE | 2016-07-29 09:26 | NUR ---
PAULO LORD SPOKE WITH PTS FAMILY, CODE STOPPED PER FAMILY REQUEST. SEE CODE SHEET.
--- NOTE | 2016-07-29 09:40 | NUR ---
CONTACTED [facility], SPOKE WITH JUSTICE. PT DECLINED DUE TO SEPSIS SYNDROME AND PATIENTS AGE. PT REFERENCE NUMBER [id number].
--- NOTE | 2016-07-29 10:25 | NUR ---
CONTACTED [facility] IN [place] PER PT'S FAMILY REQUEST.
--- NOTE | 2016-07-29 11:20 | NUR ---
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
--- NOTE | 2016-07-31 06:18 | EC ---
PATIENT:JERSON DRAPER DATE OF SERVICE: 07/27/16 SEX: F MEDICAL RECORD: [id number] DATE OF : 42 LOCATION:[place] [address] AGE OF PATIENT: 75 ADMISSION DATE: 07/27/16 REFERRING PHYSICIAN: INTERPRETING PHYSICIAN: CASSIDY SETINBERG M.D. ECHOCARDIOGRAM REPORT ECHO CHARGES 5 ECHO LIMITED CLINICAL DIAGNOSIS: POST [place] ECHOCARDIOGRAPHIC MEASUREMENTS (adult normal given) AC root (d.<3.7cm) 3.4 LV Septum d (<1.2 cm> 1.3 Valve Excursion 1.8 LV Septum (systole) 2.4 Left Atria (s.<4.0cm> LVPW d(<1.2cm) 1.6 RV (d.<2.3cm) 4.0 LVPW (sytole) 2.2 LV diastole(<5.6CM) 3.5 MV E-F(>70mm/sec) 2.3 LV systole 0.9 LVOT Diameter 1.4 MV exc.(>10mm) Est.ejection fraction (50-75%) Pericardial Effusion N DOPPLER: LVIT A E LA RVSP LVOT AOP1/2T Asc. Ao RVOT 99 RA PA 131 AV Gradient Peak AV Mean AV Area MV Gradient Peak MV Mean MV Area COMMENTS: Pulmonary Fellow: Jadyn POTTER Electric Range Preparer:Jadyn Steinberg TAPE# PACS DATE OF SERVICE: 07/29/2016 INDICATION: Status post inferior [place]. DESCRIPTION: Left ventricle is mildly dilated. The inferior, posterior and lateral almaraz are all akinetic. The anterior wall moves the best. Estimated ejection fraction is in the order of 10%. Mitral valve is structurally normal. There is mild regurgitation seen. Left atrium is normal in size. The aortic valve is not well visualized. Right ventricle is mildly dilated. Tricuspid valve is normal. There is mild regurgitation seen. Right atrium is normal ECHOCARDIOGRAM REPORT [id number] JERSON DRAPER size. There is no pericardial effusion seen. IMPRESSION: 1. Severe left ventricular dysfunction with ejection fraction 10% with akinesis of the inferior and posterior almaraz. 2. Moderate mitral regurgitation. 3. Mild tricuspid regurgitation. TRANSINT:[id number] Voice Confirmation ID: [id number] DOCUMENT ID: [id number] CASSIDY STEINBERG M.D. at 0618 CC: [id number] DICTATION DATE: 07/30/16718 INVESTIGATIONS CONSULTANT: 07/30/16 2350 DIS IN 07/29/16 [id number] [place] [address]
--- NOTE | 2016-07-31 10:43 | NUR ---
Per CMS protocol, restraint report logged into data base.
--- NOTE | 2016-08-14 08:04 | OP ---
PATIENT NAME: JERSON DRAPER MEDICAL RECORD: [id number] :42 LOCATION:[facility].CV01 ADMISSION DATE:07/27/16 SURGEON: CASSIDY MICHAELS M.D. DATE OF OPERATION: 07/27/2016 PROCEDURES PERFORMED: 1. Selective coronary angiography. 2. PTCA and stent placed to the circumflex. 3. Intra-aortic balloon pump insertion. INDICATION: A 75-year-old woman presents with acute inferior wall myocardial infarction. EQUIPMENT USED: Diagnostic 5-Panamanian JL4, Roger right. INTERVENTION: A 6-Panamanian XB LAD guide, Whisper guidewire, 2.5 x 20 mm Williamson balloon, 2.75 x 26 mm Integrity stent. TECHNIQUE: A 6-Panamanian sheath was inserted in retrograde fashion in the right common femoral artery. Next, selective coronary angiography was performed in standard 5-Panamanian JL4 and Roger right. CORONARY ANATOMY: 1. Left main: Left main trunk is moderate in caliber. It gives rise to the LAD and circumflex. It has no obstruction. 2. LAD: This is a small caliber vessel. It is diffusely diseased at the proximal segment to the apex. The vessel appears to be less than 2 mm in diameter throughout its course. 3. Circumflex: This vessel is 100% occluded in the proximal vessel. There is staining noted in the proximal segment as well. 4. Right coronary: This vessel is large in caliber and dominant. There appears to be a smooth ostial 50% stenosis. There is no dampening of pressure. DESCRIPTION OF INTERVENTION: A 100 units per kilogram of heparin was infused. A 6-Panamanian XB LAD guide was advanced and engaged in the left main coronary artery. Next, a Whisper guidewire was directed through the distal circumflex into the occlusion. The proximal vessel was predilated with a 2.5 x 20 mm balloon. At this point, there appeared to be a long linear dissection involving the mid vessel with quite a bit of thrombus. There was slow flow in the distal vessel. At this point, a 2.75 x 26 mm Integrity stent was placed across this long dissection plane and deployed at 10 atmospheres. Injection reveals stent to be widely patent with 0% residual stenosis. However, there is SUSHMA 1 flow to the vessel. At this point, Intracoronary nitroglycerin was given. There is really no significant improvement in flow. Intracoronary Cardene was then given as well. This resulted in still slow flow in the vessel. At this point, the patient became hypotensive with systolic pressure in the 40-50 range. Dopamine was then started. However, despite dopamine, the patient's pressure did not improve. At this point, a 7-Panamanian sheath was inserted in retrograde fashion in the left common femoral artery. Next, a 7-Panamanian intra-aortic balloon pump was inserted through the femoral sheath and advanced to the level of the bronwyn over wire. The balloon was then filled and showed good augmentation. At this point, the patient's pressure dramatically improved from 40 to 50 systolic to 120 systolic. Repeat angiography at this point revealed SUSHMA 3 flow through the circumflex artery with no evidence of any further thrombus or slow flow. At this point, the guide was removed. OPERATIVE REPORT [id number] JERSON DRAPER IMPRESSION: Successful percutaneous transluminal coronary angioplasty and stenting to the circumflex artery with 0% residual stenosis. TRANSINT:[id number] Voice Confirmation ID: [id number] DOCUMENT ID: [id number] CASSIDY MICHAELS M.D. at 0804 CC: [id number] DICTATION DATE: 07/27/16 1551 HYDROELECTRIC MACHINERY MECHANIC HELPER: 07/27/16 1707 DIS IN 07/29/16 [id number] [place] [address]
--- NOTE | 2016-08-14 12:11 | CN ---
PATIENT NAME:JERSON XAVIER MEDICAL RECORD: [id number] : 42 LOCATION:[facility].CV01 ADMIT DATE: 07/27/16 ACCOUNT: [id number] CONSULTING PHYSICIAN: ROBERT BREWER MD REFERRING PHYSICIAN: CLYDE STEINBERG M.D. DATE OF CONSULTATION: 07/28/2016 REQUESTING PHYSICIAN: Clyde Steinberg MD. REASON FOR CONSULTATION: Acute respiratory distress. HISTORY OF PRESENT ILLNESS: Ms. Xavier is a 75-year-old female, who was admitted yesterday to the ER for inferior wall infarction. She had a cardiac catheterization. Yesterday, the patient was hypotensive and the patient was left on balloon pump. Early this morning, the patient is getting respiratory distress. ABG was done on the patient. She was in metabolic as well as respiratory acidosis. The history was taken mainly by talking to the nursing staff and reviewing the patient's note. REVIEW OF SYSTEMS: Not obtainable. PAST MEDICAL HISTORY: 1. Hypertension. 2. Diabetes mellitus. PAST SURGICAL HISTORY: Now, she is status post cardiac catheterization and stent placement. PHYSICAL EXAMINATION: GENERAL: Now, the patient is orally intubated, sedated and unresponsive. VITAL SIGNS: The blood pressure is 83-103/64, pulse is 72, respirations 20, temperature 98.4, and SpO2 is 95% on assist control mechanical ventilation. HEENT: Conjunctivae pink. Sclerae nonicteric. Pupils equal, round and reactive to light. NECK: Supple. There is elevated JVD. CHEST: There are bilateral crackles. No wheezing. HEART: Rhythm regular, normal sounds. No murmur. ABDOMEN: Soft. Bowel sounds present. No hepatosplenomegaly. RECTAL: Deferred. EXTREMITIES: No cyanosis, no clubbing, no pedal edema. The left side intra-aortic balloon pump is in place. LABORATORY DATA: ABG: Initially, the pH was 7.21, pCO2 was 46.6, the pO2 was 76, bicarbonate 18.9. Repeat ABG: The pH is 7.30, pCO2 is 40.5, pO2 is 249, bicarbonate 19.9. Chemistry: Sodium 138, potassium is 6.2, chloride 106, BUN is 29, creatinine 2.3, glucose 193. Lactic acid 5.7. AST is 968, the ALT is 97. INR is 1.31. CHEST RADIOGRAPH: There is pulmonary edema. The ET tube is in good position. IMPRESSION: 1. Acute hypoxic hypercapnic respiratory failure as well as metabolic acidosis. 2. Septic and cardiogenic shock. 3. Lactic acidosis. 4. Acute inferior wall myocardial infarction. CONSULT REPORT [id number] JERSON XAVIER 5. Elevated liver enzymes, most likely secondary to shock liver. 6. Acute renal failure, most likely secondary to acute tubular necrosis. 7. Pulmonary edema. RECOMMENDATION: 1. Continue mechanical ventilation, adjust the setting. 2. Pressors and intra-aortic balloon pump to support the blood pressure. 3. Vancomycin IV, cefepime IV and check the blood cultures. Check the urine culture. Check the sputum culture. 4. Central line and keep the CVP 10-12. 5. Follow up labs and chest radiograph and ABGs. Discussed with the RN/RT. Discussed with the family. The critical care time is [address] Steinberg, thank you for involving me in the care of Ms. Xavier. TRANSINT:[id number] Voice Confirmation ID: [id number] DOCUMENT ID: [id number] ROBERT BREWER MD at 1211 CC: CLYDE STEINBERG M.D. [id number] DICTATION DATE: 07/28/16 1008 VETERANS SERVICE OFFICER: 07/28/16 1153 DIS IN 07/29/16 [facility] [address] [place] [address]
== END 2016-07-29 11:20 | DRG 853 ==
LOC: D.ER 13:44 → D.CVICU 16:10
PROVIDERS: Emergency Medicine; Internal Medicine Pulmonary Disease; ADMIT Internal Medicine Cardiovascular Disease
PROC: B2111ZZ Fluoroscopy of Multiple Coronary Arteries using Low Osmolar Contrast (ICD-10-PCS; 2016-07-27)
PROC: 0T9B70Z Drainage of Bladder with Drainage Device, Via Natural or Artificial Opening (ICD-10-PCS; 2016-07-27)
PROC: 02703DZ Dilation of Coronary Artery, One Artery with Intraluminal Device, Percutaneous Approach (ICD-10-PCS; principal; 2016-07-27 14:45)
PROC: 5A02210 Assistance with Cardiac Output using Balloon Pump, Continuous (ICD-10-PCS; 2016-07-27 14:45)
PROC: 4A023N7 Measurement of Cardiac Sampling and Pressure, Left Heart, Percutaneous Approach (ICD-10-PCS; 2016-07-27 14:45)
PROC: 02HV33Z Insertion of Infusion Device into Superior Vena Cava, Percutaneous Approach (ICD-10-PCS; 2016-07-28)
PROC: 0BH17EZ Insertion of Endotracheal Airway into Trachea, Via Natural or Artificial Opening (ICD-10-PCS; 2016-07-28)
PROC: 5A1945Z Respiratory Ventilation, 24-96 Consecutive Hours (ICD-10-PCS; 2016-07-28)
DX: A41.9 Sepsis, unspecified organism (principal); I21.19 ST elevation (STEMI) myocardial infarction involving other coronary artery of inferior wall; R65.21 Severe sepsis with septic shock; N17.0 Acute kidney failure with tubular necrosis; J96.02 Acute respiratory failure with hypercapnia; J96.01 Acute respiratory failure with hypoxia; I25.10 Atherosclerotic heart disease of native coronary artery without angina pectoris; I95.9 Hypotension, unspecified; I48.91 Unspecified atrial fibrillation; E11.9 Type 2 diabetes mellitus without complications; I11.0 Hypertensive heart disease with heart failure; I50.9 Heart failure, unspecified; Z78.1 Physical restraint status